=== PATIENT | male | born 1965 | race Caucasian/White ===

== ENCOUNTER → 2020-05-27 14:04 | Outpatient (BNVA) | payer BC, SELFPAY | PROVIDERS: Family Provider Nurse Practitioner Family; Visit Provider Internal Medicine | DX: E11.42 Type 2 diabetes mellitus with diabetic polyneuropathy (principal); G47.33 Obstructive sleep apnea (adult) (pediatric); Z51.81 Encounter for therapeutic drug level monitoring; Z79.890 Hormone replacement therapy | CPT/HCPCS: 99204 ==

== ENCOUNTER → 2020-05-28 08:30 | Outpatient (BNVA) | payer BC, SELFPAY | PROVIDERS: Family Provider Nurse Practitioner Family; Visit Provider Internal Medicine | DX: Z51.81 Encounter for therapeutic drug level monitoring (principal); Z79.890 Hormone replacement therapy; E11.9 Type 2 diabetes mellitus without complications | CPT/HCPCS: 83001; 83002; 83036; 84146; 84153; 84402; 84403; 85025 ==

== ENCOUNTER → 2020-08-20 08:56 | Outpatient (BNVA) | payer BC, SELFPAY | PROVIDERS: Family Provider Nurse Practitioner Family; Visit Provider Internal Medicine | DX: E11.42 Type 2 diabetes mellitus with diabetic polyneuropathy (principal); E23.7 Disorder of pituitary gland, unspecified; Z79.890 Hormone replacement therapy | CPT/HCPCS: 82533; 83036; 84403; 84439; 84443; 85025 ==

== ENCOUNTER → 2020-08-25 14:40 | Outpatient (BNVA) | payer BC, SELFPAY | PROVIDERS: Family Provider Nurse Practitioner Family; Visit Provider Internal Medicine | DX: E11.42 Type 2 diabetes mellitus with diabetic polyneuropathy (principal); E78.5 Hyperlipidemia, unspecified; G47.33 Obstructive sleep apnea (adult) (pediatric); Z51.81 Encounter for therapeutic drug level monitoring; Z79.890 Hormone replacement therapy | CPT/HCPCS: 99215 ==

== ENCOUNTER → 2021-03-04 08:16 | Outpatient (BNVA) | payer BC, SELFPAY | PROVIDERS: Family Provider Nurse Practitioner Family; Visit Provider Internal Medicine | DX: E11.42 Type 2 diabetes mellitus with diabetic polyneuropathy (principal); R79.89 Other specified abnormal findings of blood chemistry; Z79.890 Hormone replacement therapy | CPT/HCPCS: 80053; 80061; 83036; 83721; 84153; 84403; 85025 ==

== ENCOUNTER → 2021-03-09 08:55 | Outpatient (BNVA) | payer BC, SELFPAY | PROVIDERS: Family Provider Nurse Practitioner Family; Visit Provider Internal Medicine | DX: E11.42 Type 2 diabetes mellitus with diabetic polyneuropathy (principal); E23.7 Disorder of pituitary gland, unspecified; R79.89 Other specified abnormal findings of blood chemistry; Z79.890 Hormone replacement therapy | CPT/HCPCS: 85025 ==

== ENCOUNTER → 2021-05-19 08:29 | Outpatient (BNVA) | payer BC, SELFPAY | PROVIDERS: Family Provider Nurse Practitioner Family; Visit Provider Nurse Practitioner Family | DX: E78.5 Hyperlipidemia, unspecified (principal); Z79.890 Hormone replacement therapy; R79.89 Other specified abnormal findings of blood chemistry; E11.42 Type 2 diabetes mellitus with diabetic polyneuropathy | CPT/HCPCS: 80053; 80061; 83036; 83721; 84403; 85025 ==

== ENCOUNTER → 2021-05-27 13:19 | Outpatient (BNVA) | payer BC, SELFPAY | PROVIDERS: Family Provider Nurse Practitioner Family; Visit Provider Internal Medicine | DX: Z51.81 Encounter for therapeutic drug level monitoring (principal); E11.42 Type 2 diabetes mellitus with diabetic polyneuropathy; E78.5 Hyperlipidemia, unspecified; Z79.84 Long term (current) use of oral hypoglycemic drugs; Z79.890 Hormone replacement therapy | CPT/HCPCS: 99214 ==

== ENCOUNTER → 2021-10-15 13:39 | Outpatient (BNVA) | payer BC, SELFPAY | PROVIDERS: Family Provider Nurse Practitioner Family; Visit Provider Nurse Practitioner Family | DX: M25.562 Pain in left knee (principal); M79.662 Pain in left lower leg; I10 Essential (primary) hypertension; E78.5 Hyperlipidemia, unspecified; M79.605 Pain in left leg; E11.9 Type 2 diabetes mellitus without complications; N40.1 Benign prostatic hyperplasia with lower urinary tract symptoms; R35.1 Nocturia; N52.9 Male erectile dysfunction, unspecified; L03.90 Cellulitis, unspecified; Z79.890 Hormone replacement therapy; Z51.81 Encounter for therapeutic drug level monitoring; R79.89 Other specified abnormal findings of blood chemistry | CPT/HCPCS: 80053; 80061; 83036; 83721; 84402; 84403; 84550 ==

== ENCOUNTER 2022-02-24 20:00 | Outpatient (CLI) | payer BC, SELFPAY | END 2022-02-24 20:01 | disposition home or self-care (01) | LOC: SLEEP 02-25 06:57 | PROVIDERS: Family Provider Nurse Practitioner Family; PCP Family Medicine; Visit Provider Specialist | DX: G47.33 Obstructive sleep apnea (adult) (pediatric) (principal) | CPT/HCPCS: 95810 ==

== ENCOUNTER 2022-03-11 08:52 | Outpatient (CLI) | payer BC, SELFPAY ==
--- NOTE | 2022-03-11 09:42 | ECG_ITS ---
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 Measurements Intervals [place] Rate: 78 P: 50 IN: 190 QRS: 16 QRSD: 93 T: 75 QT: 325 QTc: 372 Interpretive Statements SINUS RHYTHM LOW QRS VOLTAGE IN PRECORDIAL LEADS [QRS DEFLECTION < 1.0 mV IN CHEST LEADS] EARLY REPOLARIZATION [ST ELEVATION WITH NORMALLY INFLECTED T-WAVE] NONSPECIFIC T-WAVE ABNORMALITY No previous ECG available for comparison Electronically Signed On 03-12-2022 8:43:49 CDT by Jovita Jackson M.D. [email or web address]
== END 2022-03-11 08:53 | disposition home or self-care (01) ==
LOC: LAB 08:54
PROVIDERS: Family Provider Nurse Practitioner Family; PCP Family Medicine; Visit Provider Specialist
DX: G47.33 Obstructive sleep apnea (adult) (pediatric) (principal)
CPT/HCPCS: 93005

== ENCOUNTER → 2022-03-28 08:21 | Outpatient (BNVA) | payer BC, SELFPAY | PROVIDERS: Family Provider Nurse Practitioner Family; PCP Family Medicine; Visit Provider Internal Medicine | DX: N52.9 Male erectile dysfunction, unspecified (principal); N40.1 Benign prostatic hyperplasia with lower urinary tract symptoms; R35.1 Nocturia; I10 Essential (primary) hypertension; E11.40 Type 2 diabetes mellitus with diabetic neuropathy, unspecified; E78.5 Hyperlipidemia, unspecified; Z79.890 Hormone replacement therapy; E11.9 Type 2 diabetes mellitus without complications | CPT/HCPCS: 80053; 80061; 83036; 84403; 85025; G0103 ==

== ENCOUNTER 2022-06-16 08:53 | Outpatient (CLI) | payer BC, SELFPAY ==
[2022-06-16 09:37] LABS: Basophils # 0.1 10^3/uL (0.0-0.1); Basophils % 0.7 %; Eosinophils # 0.2 10^3/uL (0.0-0.8); Eosinophils % 1.9 %; Hematocrit 53.7 % (42.0-52.0); Hemoglobin 17.4 g/dL (11.7-16.6); Lymphocytes # 2.4 10^3/uL (0.8-4.8); Lymphocytes % 21.3 %; Mean Corpuscular HGB Conc 32.4 g/dL (30.0-36.0); Mean Corpuscular Volume 89.5 fl (80-94); Mean Platelet Volume 9.3 fL (7.4-10.4); Monocytes # 0.7 10^3/uL (0.2-0.9); Monocytes % 6.2 %; Neutrophils # 7.66 10^3/uL (1.8-7.7); Neutrophils % 69.4 %; Nucleated Red Blood Cells % 0 %; Platelet Count 295 10^3/cmm (130-400); Red Cell Distribution Width 13.5 % (12.1-15.1); White Blood Count 11.1 10^3/uL (4.0-10.0)
[2022-06-16 09:52] LABS: Estmated Average Glucose 157; Hemoglobin A1C 7.1 % (4.0-6.0)
[2022-06-16 10:18] LABS: Alanine Aminotransferase 19 U/L (0-41); Albumin Level 4.4 g/dL (3.5-5.2); Alkaline Phosphatase 120 U/L (40-130); Aspartate Amino Transferase 19 U/L (0-40); Blood Urea Nitrogen 13 mg/dL (6-20); Calcium 9.4 mg/dL (8.5-10.5); Carbon Dioxide 23 mmol/L (22-29); Chloride 101 mmol/L (98-107); Chol HDL Ratio 6.24 mg/dL (1.0-5.00); Cholesterol 156 mg/dL (0-200); Globulin 3.5 g/dL (1.3-4.6); Glomerular Filtration Rate 57.1 mL/min (90-130); Glucose 117 mg/dL (65-115); HDL Cholesterol 25 mg/dL (60-100); LDL Cholesterol Calculated 85 mg/dL (50-129); Osmolality Calculated 283 mOsm/kg (285-295); Sodium 136 mmol/L (136-145); Testosterone Total 486.6 ng/dL (193-740); Total Bilirubin 0.5 mg/dL (0.15-1.2); Total Protein 7.9 g/dL (6.6-8.7); Triglycerides 228 mg/dL (0-150)
[2022-06-16 10:21] LABS: Anion Gap 16.3 (5-19); Potassium 4.3 mmol/L (3.5-5.1)
== END 2022-06-16 08:54 | disposition home or self-care (01) ==
LOC: LAB 08:55
PROVIDERS: PCP Family Medicine; Visit Provider Internal Medicine
DX: Z01.89 Encounter for other specified special examinations (principal)
CPT/HCPCS: 80053; 80061; 83036; 84153; 84403; 85025

== ENCOUNTER → 2022-06-22 08:51 | Outpatient (BNVA) | payer BC, SELFPAY | PROVIDERS: PCP Family Medicine; Visit Provider Nurse Practitioner Family | DX: R50.9 Fever, unspecified (principal); N52.9 Male erectile dysfunction, unspecified; J10.1 Influenza due to other identified influenza virus with other respiratory manifestations; N40.1 Benign prostatic hyperplasia with lower urinary tract symptoms; R35.1 Nocturia | CPT/HCPCS: 87400 ==

== ENCOUNTER → 2022-12-06 08:23 | Outpatient (BNVA) | payer OTHER, SELFPAY | PROVIDERS: PCP Family Medicine; Visit Provider Dermatology | DX: Z01.89 Encounter for other specified special examinations (principal) ==

== ENCOUNTER → 2023-02-08 08:41 | Outpatient (BNVA) | payer OTHER, SELFPAY | PROVIDERS: PCP Family Medicine; Visit Provider Nurse Practitioner Family | DX: D75.1 Secondary polycythemia (principal) | CPT/HCPCS: 80048; 85025 ==

== ENCOUNTER → 2023-06-06 08:42 | Outpatient (BNVA) | payer SELFPAY | PROVIDERS: PCP Family Medicine; Visit Provider Nurse Practitioner Family | DX: Z01.89 Encounter for other specified special examinations (principal); E55.9 Vitamin D deficiency, unspecified; I10 Essential (primary) hypertension ==

== ENCOUNTER → 2023-09-20 08:26 | Outpatient (BNVA) | payer OTHER, SELFPAY | PROVIDERS: PCP Nurse Practitioner Family; Visit Provider Nurse Practitioner Family | DX: E11.42 Type 2 diabetes mellitus with diabetic polyneuropathy (principal) | CPT/HCPCS: 80053; 80061; 83036; 85025 ==

== ENCOUNTER → 2024-03-05 10:03 | Outpatient (BNVA) | payer SELFPAY | PROVIDERS: PCP Nurse Practitioner Family; Visit Provider Dermatology | DX: Z00.00 Encounter for general adult medical examination without abnormal findings (principal) | CPT/HCPCS: 83721 ==

== ENCOUNTER → 2024-06-04 08:40 | Outpatient (BNVA) | payer OTHER, SELFPAY | PROVIDERS: PCP Nurse Practitioner Family; Visit Provider Dermatology | DX: Z13.9 Encounter for screening, unspecified (principal) | CPT/HCPCS: 83721 ==

== ENCOUNTER → 2024-07-22 10:19 | Outpatient (BNVA) | payer OTHER, SELFPAY | PROVIDERS: PCP Nurse Practitioner Family; Visit Provider Nurse Practitioner Family | DX: D75.1 Secondary polycythemia (principal) | CPT/HCPCS: 85025 ==

== ENCOUNTER 2024-12-04 13:29 | Outpatient (CLI) | payer OTHER, SELFPAY | END 2024-12-04 13:30 | disposition home or self-care (01) | LOC: SLEEP 13:30 | PROVIDERS: PCP Nurse Practitioner Family; Referring Provider Specialist; Visit Provider Internal Medicine Pulmonary Disease | DX: G47.33 Obstructive sleep apnea (adult) (pediatric) (principal) | CPT/HCPCS: G0399 ==

== ENCOUNTER → 2024-12-11 08:41 | Outpatient (BNVA) | payer OTHER, SELFPAY | PROVIDERS: PCP Nurse Practitioner Family; Visit Provider Dermatology | DX: Z01.89 Encounter for other specified special examinations (principal) | CPT/HCPCS: 83721 ==